=== PATIENT | female | born 1995 | race African-American/Black ===

== ENCOUNTER 2017-04-12 14:56 | Outpatient (CLI) | payer OTHER ==
--- NOTE | 2017-04-12 21:11 | RAD ---
PELVIS THREE VIEWS: 04/12/17 No opaque foreign body was visible. The bony pelvis appears intact. An IUD is noted in the midline. A right sided calcification is probably a phlebolith. IMPRESSION: No significant findings. POS: HOME
== END 2017-04-12 14:57 | disposition home or self-care (01) ==
LOC: BURRAD 14:56
PROVIDERS: ATTEND Family Medicine
DX: M79.1 Myalgia (principal)
CPT/HCPCS: 72190

== ENCOUNTER 2017-05-04 10:54 | Outpatient (CLI) | payer OTHER ==
--- NOTE | 2017-05-04 17:18 | RAD ---
CERVICAL SPINE FIVE VIEWS 05/04/17 There is loss of the normal cervical lordosis which may be due to muscle spasm. No fracture, disloca tion, or soft tissue swelling was seen. The C1 to dens distance is normal and the soft tissues are n ormal in thickness. the disc spaces are normal in height. Oblique views show the neural foramina to be widely patent. IMPRESSION: Aside from straightening of the cervical spine which may be due to spasm, there were no acute findin gs. POS: HOME
== END 2017-05-04 10:55 | disposition home or self-care (01) ==
LOC: BURRAD 10:54
PROVIDERS: ATTEND Nurse Practitioner Family
DX: S13.4XXA Sprain of ligaments of cervical spine, initial encounter (principal)
CPT/HCPCS: 72050

== ENCOUNTER 2017-10-04 09:46 | Emergency (ER) | payer OTHER ==
[2017-10-04] MEDS ORDERED: Ketorolac Tromethamine 60 MG/2 ML VIAL ONE (10:08)
--- NOTE | 2017-10-04 17:10 | RAD ---
CHEST TWO VIEWS: 10/04/17 Comparison is made with a 06/27/08 study. The heart is normal in size. The mediastinum shows no widening or shift. The lungs are clear. No infi ltrate or effusion was present. No gross fractures were identified. IMPRESSION: No acute thoracic findings. POS: HOME
== END 2017-10-04 10:30 | disposition home or self-care (01) ==
LOC: BURERS 09:46
DX: R07.89 Other chest pain (principal); F17.210 Nicotine dependence, cigarettes, uncomplicated; V89.2XXA Person injured in unspecified motor-vehicle accident, traffic, initial encounter
CPT/HCPCS: 71046; 93005; 96372; J1885